=== PATIENT | female | born 1965 | race Caucasian/White ===

== ENCOUNTER 2016-10-08 06:35 | Observation (INO) | payer MEDICARE, OTHER ==
[2016-10-06 15:49] LABS: BASOPHILS 0.2 %; BASOPHILS ABSOLUTE 0.01 10/3/uL (0.0-0.16); EOSINOPHILS 6.8 %; EOSINOPHILS ABSOLUTE 0.32 10/3/uL (0.0-0.53); HEMATOCRIT 36.9 % (36.0-48.0); HEMOGLOBIN 12.2 g/dL (12.0-16.0); IMMATURE GRANULOCYTES 0.2 %; IMMATURE GRANULOCYTES ABSOLUTE 0.01 10/3/uL (0.0-0.11); LYMPHOCYTES 38.6 %; LYMPHOCYTES ABSOLUTE 1.81 10/3/uL (0.67-4.30); MEAN CORPUS HGB CONC 33.1 g/dL (32.0-36.0); MEAN CORPUSCULAR HEMOGLOB 30.2 pg (26.0-34.0); MEAN CORPUSCULAR VOLUME 91.3 fL (80-100); MEAN PLATELET VOLUME 9.9 fL (9.2-13.0); MONOCYTES 10.7 %; NEUTROPHILS 43.5 %; NEUTROPHILS ABSOLUTE 2.04 10/3/uL (2.02-8.40); PLATELET COUNT 286 10/3/uL (150-400); RBC DISTRIBUTION WIDTH 12.9 % (12.0-16.0); RED CELL COUNT 4.04 10/6/uL (4.0-5.6); WHITE BLOOD CELLS 4.7 10/3/uL (4.5-10.5)
[2016-10-06 15:51] LABS: MANUAL DIFF NO %
[2016-10-06 16:29] LABS: ALBUMIN 3.2 G/DL (3.5-5.0); CALCIUM, SERUM 8.8 MG/DL (8.5-10.4); CHLORIDE, SERUM 104 MMOL/L (96-112); CREATININE 1.12 MG/DL (0.55-1.02); GFR AFRICAN AMERICAN 66 ML/MIN (>=60); GFR NON AFRICAN AMERICAN 57 ML/MIN (>=60); GLOBULIN 3.1 G/DL (2.5-4.1); POTASSIUM, SERUM 3.8 MMOL/L (3.5-5.3); SGOT(AST) 48 U/L (5-40); SGPT(ALT) 32 U/L (5-65); SODIUM, SERUM 139 MMOL/L (135-148); TOTAL BILIRUBIN 0.2 MG/DL (0-1.2); TOTAL PROTEIN 6.3 G/DL (6.0-8.5)
[2016-10-06 16:30] LABS: ALKALINE PHOSPHATASE 83 U/L (45-117); BUN (BLOOD UREA NITROGEN) 17 MG/DL (6-23); CO2 (CARBON DIOXIDE) 30 MMOL/L (24-34); GLUCOSE, SERUM 104 MG/DL (60-99)
[~2016-10-08] VITALS: Ht 170.2 cm; Wt 109.8 kg
--- NOTE | ~2016-10-08 | OP ---
Record Of Operation [facility] [address] [place]. 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 PROCEDURE: Left mastectomy with sentinel lymph node biopsy. ANESTHESIA: General intubation. COMPLICATIONS: None. ESTIMATED BLOOD LOSS: 20 mL. SPECIMENS: Left breast and left axillary sentinel lymph node. DRAINS: Hair-Ansari in subcutaneous tissue. LAP AND SPONGE COUNT: Correct x3. BRIEF HISTORY: This 51-year-old female recently presented with a subareolar biopsy-proven ductal carcinoma in situ of the left breast. The patient chose to have a mastectomy as primary treatment for her malignancy. The option of breast conservative therapy, i.e., lumpectomy was offered to her and recommended but declined. The patient, therefore, came now for a left mastectomy with sentinel lymph node biopsy and possible axillary lymph node dissection if the sentinel lymph node was found to contain malignancy. The patient had a grade 3 carcinoma in situ. Regarding the surgery, the procedure, risks, benefits, and alternatives, including but not limited to the risk for bleeding; infection; pain; swelling; scarring; deformity to the area; seroma formation; hematoma formation; nerve injury; chronic paresthesia; pain in the arm, shoulder, or axilla; chronic lymphedema of the arm; nerve injuries; muscle weakness or paralysis in muscles of upper arm, back, or shoulder; and unforeseen complications including deep venous thrombosis, pulmonary embolus, myocardial infarction, stroke, pneumonia, and were fully explained to the patient prior to surgery. The possible need to return for completion axillary dissection if there were discrepancies between the frozen section on sentinel lymph node and final pathology report was explained. The patient's questions were answered. She fully and clearly understood the risks and agreed to surgery as planned. DESCRIPTION OF PROCEDURE: After being properly identified and after discussing the risks of surgery with her again in the preoperative area and after lymphoscintigraphy had been performed per Radiology, the patient was taken to the operating room and placed in the supine position on the operating room table. General anesthesia was administered and she was intubated without difficulty. The chest, left breast, arm, and axilla were prepped and Record Of Operation [place] [id number] [facility] [place]. [address] NAME: RONNI SOTO : 65 STATUS : ADM IN PAT#: [id number] AGE: 51 ADM/REG DATE : 10/08/16 MR#: [id number] REPORT SERV DATE: 10/08/16 DICTATED BY: KAREEN FRANKLIN III DATE: 10/08/16 REPORT STATUS : Draft TRANSCRIBED BY: SELVIN DATE: 10/08/16 draped sterilely in the usual fashion. After an appropriate "time-out" per [place] standards, a horizontally oriented elliptical-shaped incision was made around the left breast centered around the areolar complex. The incision was continued through subcutaneous tissue. Using sharp dissection, superior, medial, inferior, and lateral breast flaps were raised. The breast was then removed from the chest wall beginning medially and continuing laterally, removing the major pectoral fascia with the breast. The entire breast was removed. Oriented sutures were placed. This breast was sent to the [facility] for specimen imaging. It was interpreted as containing calcifications and the previously placed biopsy marker. The breast was then sent for permanent pathology. Through the same incision, we dissected into the left axilla. Using the navigator probe, we identified a single sentinel lymph node. This lymph node was removed. The ex-vivo 10- second count of this lymph node was approximately 4300. The background count of the axilla after removal of the lymph node was about 0/10 seconds. The sentinel lymph node was sent for frozen section and interpreted as being benign with no evidence for malignancy. The wound was irrigated copiously with saline. Hemostasis was assured. A Hair-Ansari drain was brought through a separate stab wound and placed in the subcutaneous tissue. The subcutaneous tissue was closed with interrupted 2-0 Vicryl sutures. The skin was closed with a running subcuticular 4-0 Monocryl stitch. Dressings were applied, anesthesia was reversed, and the patient was taken to the recovery room in stable condition. She tolerated the procedure well. Her family was informed of the results of surgery. The patient will remain in the hospital for postoperative care. PHILIP/SELVIN Kareen Franklin III, M.D. / [id number] CC: Jose Lockhart III, M.D.
[~2016-10-08 06:35] MED LIST: ADVIL PM1 CAP PO; ALBUTEROL0.083 % INH; ALLEGRA PO; BEN25 PO; CEFT5 PO; FLECTOR1.3 % TOP; FORADIL INH; HYOMAX-SL0.125 MG PO; INDE60 PO; KLONO1 PO; OPANA ER40 MG PO; PRIM50B PO; PROBIOTIC; PROLIA60 MG/1 ML SC; PROTONIX PO; PROZAC PO; REMERON30 MG PO; SPIRIVA INH; VIST50 PO; VITAMIN D31000 UNIT PO; VITC500 PO; Z300 PO; ZANAFLEX 4 MG TA4 MG PO
[2016-10-09 04:41] LABS: BASOPHILS 0.1 %; BASOPHILS ABSOLUTE 0.01 10/3/uL (0.0-0.16); EOSINOPHILS 0.3 %; EOSINOPHILS ABSOLUTE 0.02 10/3/uL (0.0-0.53); HEMATOCRIT 34.7 % (36.0-48.0); HEMOGLOBIN 11.5 g/dL (12.0-16.0); IMMATURE GRANULOCYTES 0.3 %; IMMATURE GRANULOCYTES ABSOLUTE 0.02 10/3/uL (0.0-0.11); LYMPHOCYTES ABSOLUTE 1.76 10/3/uL (0.67-4.30); MEAN CORPUS HGB CONC 33.1 g/dL (32.0-36.0); MEAN CORPUSCULAR HEMOGLOB 30.7 pg (26.0-34.0); MEAN CORPUSCULAR VOLUME 92.5 fL (80-100); MEAN PLATELET VOLUME 9.9 fL (9.2-13.0); MONOCYTES 10.3 %; MONOCYTES ABSOLUTE 0.79 10/3/uL (0.21-1.20); NEUTROPHILS ABSOLUTE 5.04 10/3/uL (2.02-8.40); PLATELET COUNT 302 10/3/uL (150-400); RBC DISTRIBUTION WIDTH 12.9 % (12.0-16.0); RED CELL COUNT 3.75 10/6/uL (4.0-5.6)
[2016-10-09 04:45] LABS: MANUAL DIFF NO %; WHITE BLOOD CELLS 7.6 10/3/uL (4.5-10.5)
== END 2016-10-09 14:59 | disposition home or self-care (01) ==
LOC: CANRESERV → ENRESERVDT → ENRESERVTM → ENRESERV → SDC/OF 06:35 → 4EA 06:35 → PACU 13:14 → 4EA 14:49
PROVIDERS: Surgery
PROC: 07B60ZX Excision of Left Axillary Lymphatic, Open Approach, Diagnostic (ICD-10-PCS; 2016-10-08)
PROC: 0HTU0ZZ Resection of Left Breast, Open Approach (ICD-10-PCS; principal; 2016-10-08 10:15)
DX: D05.12 Intraductal carcinoma in situ of left breast (principal); J44.9 Chronic obstructive pulmonary disease, unspecified; I10 Essential (primary) hypertension; K58.9 Irritable bowel syndrome, unspecified; G89.29 Other chronic pain; M06.9 Rheumatoid arthritis, unspecified; G71.0 Muscular dystrophy; G20 Parkinson's disease; I95.89 Other hypotension; Z79.899 Other long term (current) drug therapy; Z79.52 Long term (current) use of systemic steroids; Z91.041 Radiographic dye allergy status; Z88.5 Allergy status to narcotic agent; Z88.8 Allergy status to other drugs, medicaments and biological substances; Z87.891 Personal history of nicotine dependence; Z90.49 Acquired absence of other specified parts of digestive tract; Z90.710 Acquired absence of both cervix and uterus; Z98.890 Other specified postprocedural states
CPT/HCPCS: 36591; 71020; 80053; 85025; 88307; 88333; 88342; 93005; 96374; 96375; 96376; A9270-GY; G0378; J0690; J1170; J2250; J2405; J3010